=== PATIENT | male | born 1965 | race Caucasian/White ===

== ENCOUNTER 2023-10-26 19:16 | Emergency (ER) | payer OTHER, SELFPAY ==
[2023-10-26] VITALS (7 sets, daily range): BP systolic 107–136; BP diastolic 78–97; BMI 27.4
[2023-10-26 19:38] LABS: % Basophils 0.2 % (0-2); % Eosinophils 0.7 % (0-6); % Immature Granulocytes 0.4 % (0-0.5); % Lymphocytes 18.3 % (20.5-51.1); % Monocytes 6.7 % (1.7-9.3); % Neutrophils 73.7 % (42.2-75.2); Absolute Eosinophils 0.1 10^3/uL (0-0.7); Absolute Immature Granulocytes 0.1 10^3/uL (0-0.05); Absolute Lymphocytes 3.1 10^3/uL (1.2-3.4); Absolute Monocytes 1.1 10^3/uL (0.1-0.6); Absolute Neutrophils 12.5 10^3/uL (1.4-6.5); Hematocrit 51.4 % (39.0-52.0); Hemoglobin 17.3 g/dL (13.0-18.0); Mean Corp Hgb Conc. 33.7 g/dL (33.0-37.0); Mean Corpuscular Volume 86.2 fL (80.0-94.0); Mean Platelet Volume 8.6 fL (7.4-10.4); Nucleated Red Blood Cells % 0 % (-); Platelet Count 303 10^3/uL (130-400); Red Blood Cell Count 5.96 10^6/uL (4.70-6.10); Red Cell Dist. Width 12.9 % (11.5-14.5)
[2023-10-26 19:55] LABS: COVID-19 Antigen Negative (Negative)
[2023-10-26 19:56] LABS: ALT (SGPT) 28 U/L (0-50); AST (SGOT) 26 U/L (17-59); Albumin 5.1 g/dl (3.5-5.0); Alkaline Phosphatase 77 U/L (38-126); Blood Urea Nitrogen 26 mg/dl (9-20); Calcium 9.4 mg/dl (8.4-10.2); Carbon Dioxide 26 mmol/L (22-30); Chloride 95 mmol/L (98-107); Glucose 217 mg/dl (70-99); Lipase 96 U/L (23-300); Potassium 4.3 mmol/L (3.5-5.1); Sodium 132 mmol/L (135-145); Total Protein 8.1 g/dl (6.3-8.2); eGFR 58.62
[2023-10-26] MEDS: NSS 1000 IV (21:44)
[2023-10-26] MEDS: ZOFRAN 4 MG IV (21:45)
[2023-10-26] MEDS: PROTONIX IV 40 MG IV (21:47)
--- NOTE | 2023-10-26 23:04 | ED.GENMED ---
History of Present Illness
General
Chief Complaint: Abdominal Pain
Source: patient
Exam Limitations: none
Time Seen by Provider: 10/26/23 21:20
Travel History
Have you had any contact with someone who has COVID-19?: No
Do you have any symptoms of coronavirus? Fever > 100 degrees, chills, cough, shortness of breath, sore throat, loss of taste or smell, muscle aches, or headache?: No
History of Present Illness
History of Present Illness:
This is a 58 year old male that comes in with c/o vomiting and diarrhea. State that on Wednesday evening after dinner he started with diarrhea. Then this got worse yesterday and he had vomiting and diarrhea. Today he is slightly better and he only eat
rice for dinner and then he vomited. States that he has felt hot and cold and that he feels full. States that he had a headache but this went away. Denies any chest pain, SOB, dizziness, urinary burning
Past History
Past History
ED Past Medical History: GERD, HTN, Hypercholesterolemia, NIDDM, Psychiatric and Other (Hiatal hernia, Deviated septum, Psoriasis, )
ED Past Surgical History: Orthopedic (Bunionectomy, Left hand tendon repair) and Urological (Vsectomy, )
Social History
Tobacco: Non-smoker
Alcohol: Occasional
Drug: None
Personal:
Living: with family
Review of Systems
Review of Systems
All Other Systems: ROS reviewed and negative except as documented in HPI and ROS
Constitutional: Reports no symptoms; Denies fever or chills
EENT: Reports no symptoms
Respiratory: Reports no symptoms; Denies cough or trouble breathing
Cardiac: Reports no symptoms; Denies chest pain
ABD/GI: Reports abdominal pain, nausea, vomiting and diarrhea
: Reports no symptoms; Denies dysuria, frequency or urgency
Musculoskeletal: Reports no symptoms
Skin: Reports no symptoms
Neurological: Reports no symptoms; Denies dizzy or headache
Psychiatric: Reports no symptoms
Phy Exam
General Physical Exam
General Presentation: no apparent distress
General age: appears stated age
General Skin: warm and dry
General Habitus: normal
General Mental: alert
General Hydration: dry mucous membranes
ENT Exam
ENT Exam: TM's normal, pharynx normal and neck supple
Eye Exam
Eye Exam: EOMI
Cardiovascular Exam
Cardiovascular Exam: regular rate/rhythm, no edema, no murmur and normal peripheral pulses
Pulmonary Exam
Pulmonary Exam: lungs clear, no respiratory distress, no rales, chest non tender, no crackles, no rhonchi, no wheezing and no cough
Gastrointestinal Exam
Gastrointestinal Exam: normal bowel sounds, non tender, soft, no organomegaly, no pulsatile mass and non distended
Musculoskeletal Exam
Musculoskeletal Exam: full ROM and no edema
Skin Exam
Skin Exam: normal color, warm/dry, no rash and no petechia
Psychiatric Exam
Psychiatric Exam: normal mood/affect
Course
Orders/Labs/Results
Orders:
Orders
10/26/23 19:23
Electrocardiogram (*1) Urgent
Reason for Study: Abdominal Pain
EKG- Treatment ONCE
IV Insert/Care/Rem.- Treatment PRN
10/26/23 19:32
COVID-19 Antigen Urgent
Source: Nasal Swab
Complete Blood Count/With Diff Urgent
Comprehensive Metabolic Panel Urgent
Lipase Urgent
10/26/23 21:34
CT Abd/pelvis W Iv Cont Urgent
Comment:
Reason For Exam: vOMITING DIARRHEA, ABD DISTENTION
0.9% Sodium Chloride 1000 ml [Nss] 1,000 ml IV BOLUS
Ondansetron Injectable [Zofran] 4 mg IV NOW STA
10/26/23 21:35
Pantoprazole [Protonix IV] 40 mg IV NOW STA
Abnormal Lab Results
10/26/23
19:32
WBC 17.0 H 10^3/uL
(4.8-10.8)
Abs Immat Gran (auto) 0.1 H 10^3/uL
(0-0.05)
Absolute Neuts (auto) 12.5 H 10^3/uL
(1.4-6.5)
Absolute Monos (auto) 1.1 H 10^3/uL
(0.1-0.6)
Lymphocytes % 18.3 L %
(20.5-51.1)
Sodium 132 L mmol/L
(135-145)
Chloride 95 L mmol/L
(98-107)
BUN 26 H mg/dl
(9-20)
Creatinine 1.4 H mg/dL
(0.7-1.3)
Glucose 217 H mg/dl
(70-99)
Albumin 5.1 H g/dl
(3.5-5.0)
10/26/23 19:32
10/26/23 19:32
Leukocytosis, Sodium slightly low. Chloride low. Glucose nonfasting. Lipase normal at 96, COVID negative.
Vital Signs
Initial and Last Documented VS:
Initial Vital Signs
Temp Pulse Resp BP Pulse Ox
97.8 F 109 18 107/78 100
10/26/23 19:19 10/26/23 19:19 10/26/23 19:19 10/26/23 19:19 10/26/23 19:19
Last Documented Vital Signs
Temp Pulse Resp BP Pulse Ox
97.8 F 109 18 125/87 95
10/26/23 19:19 10/26/23 19:19 10/26/23 19:19 10/26/23 22:50 10/26/23 22:50
MDM/Problems Addressed
Differential Diagnosis Includes:
Viral syndrome. Gastritis, Enteritis
MDM/Problems Addressed:
This is a 58 year old male that comes in with c/o vomiting and diarrhea. States that this started on Wednesday night. Today he feels a little better. Then after dinner he only eat rice and the vomited.
Will check labs and get CT scan.
Back into see patient. Explained that this looks to be a Gastroenteritis. This can be bacterial or viral. Generally this is not treated and can go away on its own. Will have patient stay on a liquid diet and increase his diet as tolerated. Patient
to increase his water intake to 8-8oz glasses daily. Return with increased abd pain, fever or any other concerns.
Chronic conditions affecting care:
NA
Acute Exacerbation and/or Progression of Chronic Illness:
NA
*Radiology
Radiology exam reviewed: radiology read reviewed (CT- Acute gastroenteritis with fluid distention of the stomach and small bowel loops. Severe hepatic steatosis. Minimal peritoneal fluid in the pelvis. Mildly enlarged prostate gland. )
*Pulse Oximetry
Patient hypoxic: no
*EKG
Interpreted by ED Provider?: NA
Rate: EKG- N/A
*Spring Forger Interpretation
Rate: Spring Forger- N/A
*Critical Care Note
Total Time (30-74mins, 75-104mins- exclusive of procedures): Not Applicable
ED Attending Note
-
Portions of this chart may have been created with voice recognition software.� Occasional wrong word or��sound alike� substitutions may have occurred due to the inherent limitations of voice recognition software.
Discharge Plan
Departure
Patient Disposition: Home (Routine Discharge)
Date of Disposition: 10/26/23
Time of Disposition: 23:44
Patient with high blood pressure during this ER visit?: No
Condition: Good
Covid-19: Negative COVID-19
Discharge Problem:
Gastroenteritis
Instructions: Nausea and Vomiting, Adult (DC), Abdominal Pain
Prescriptions:
New
ondansetron 4 mg tablet,disintegrating
4 mg PO Q8H PRN (Reason: nausea and vomiting) Qty: 10 0RF
No Action
metformin 500 MG tablet
500 mg PO DAILY
venlafaxine 75 MG capsule,extended release 24hr
50 mg PO DAILY
lorazepam 2 MG tablet
2 mg PO BID
simvastatin 5 MG tablet
1 tab PO DAILY
Patient Comments:
unknown dose
mirtazapine 7.5 MG tablet
7.5 mg PO DAILY
fluticasone propionate 1 SPRAY spray,suspension
1 spray intranasal DAILY
lisinopril 2.5 MG tablet
2.5 mg PO DAILY
docosahexaenoic acid-epa 1 CAP capsule
1 cap PO DAILY
nebivolol 10 MG tablet
15 mg PO DAILY
Referrals:
Josef Hutchins, [Family Provider] - Follow up in 2-3 days
Activity Restrictions/Additional Instructions:
As discussed, your blood work shows that you have an elevation of the WBC. This can happen with all the vomiting and viral illness. Your CT shows that you have a gastroenteritis. This can be viral or bacterial. However, this is not usually treated
it goes away on its own. Please increase your water intake to 8-8oz glasses daily. Stay away form milk and milk products as long as you have diarrhea. Simple foods that are easily digested ar rice, potatoes and chicken. You have had a prescription
for Zofran sent to your Pharmacy to help with any nausea/vomiting. Follow up with the family doctor for recheck. IF YOU HAVE INCREASED ABD PAIN. VOMITING THAT IS NOT CONTROLLED, FEVER, OR YOU HAVE ANY OTHER CONCERNS PLEASE RETURN TO THE EMERGENCY
ROOM.
Interventions
Interventions:
*Risk Screen - Suicide Last Done: 10/26/23 20:46
*General Assessment Last Done: 10/26/23 20:46
*Neglect/Abuse Screening Last Done: 10/26/23 20:46
ED- Fall Risk Assessment Last Done: 10/26/23 20:46
*ED COVID-19 Vaccine History Last Done: 10/26/23 20:46
[facility] Assessment Last Done: 10/26/23 20:46
== END 2023-10-27 00:05 | disposition home or self-care (01) ==
LOC: EMR 19:16
PROVIDERS: Emergency Medicine; EMERGENCY PHYSICIAN Student in an Organized Health Care Education/Training Program; FAMILY PHYSICIAN Family Medicine
DX: K52.9 Noninfective gastroenteritis and colitis, unspecified (principal); K21.9 Gastro-esophageal reflux disease without esophagitis; I10 Essential (primary) hypertension; E78.00 Pure hypercholesterolemia, unspecified; E11.9 Type 2 diabetes mellitus without complications; K44.9 Diaphragmatic hernia without obstruction or gangrene; J34.2 Deviated nasal septum; L40.9 Psoriasis, unspecified
CPT/HCPCS: 99284; 96374; 96375; 96361; 74177; 80053; 83690; 85025; 87811; 93005; Q9967